=== PATIENT | female | born 1995 | race Caucasian/White ===

== ENCOUNTER → 2017-03-03 | Outpatient (CLI) | payer BC ==
[~2017-03-03] MED LIST: JNL12021 PO; LAMO1TAB21 PO; LMC25 PO; LURA1TAB3 PO
[2017-03-03 19:46] LABS: THYROID STIMULATING HORMONE 1.85 uIu/ml (0.300-4.500)
== END | disposition home or self-care (01) ==
LOC: C.LAB 18:45
PROVIDERS: ATTEND Student in an Organized Health Care Education/Training Program
DX: F41.9 Anxiety disorder, unspecified (principal)